=== PATIENT | female | born 1955 | race Caucasian/White ===

== ENCOUNTER → 2016-09-12 | Outpatient (CLI) | payer OTHER ==
[~2016-09-12] MED LIST: ALL180 PO; ATV5 PO; CITA20TA4 PO; OMEP40CA41 PO; SIMV20TA5 PO; SOLI10TA2 PO; SYN50 PO
[2016-09-12 17:46] LABS: ALT/SGPT 34 U/L (12-78); AST/SGOT 22 U/L (15-37); BLOOD UREA NITROGEN 10 mg/dl (7-18); CALCIUM 9.2 mg/dl (8.5-10.1); CARBON DIOXIDE 28 mmol/L (21-32); CHLORIDE 106 mmol/L (98-107); GLUCOSE 103 mg/dl (70-99); POTASSIUM 3.8 mmol/L (3.5-5.1); SODIUM 143 mmol/L (136-145)
[2016-09-12 17:49] LABS: ALB/GLOB RATIO 1.1 (0.9-2); ALKALINE PHOSPHATASE 61 U/L (45-117)
[2016-09-12 18:27] LABS: LYME DISEASE AB IGG NEG (NEG); LYME DISEASE AB IGM EQUIVOCAL (NEG)
[2016-09-15 15:57] LABS: 18KDIGG BAND NONREACTIVE (NONREACTIVE); 23KDIGG BAND NONREACTIVE (NONREACTIVE); 23KDIGM BAND NONREACTIVE (NONREACTIVE); 28KDIGG BAND NONREACTIVE (NONREACTIVE); 30KDIGG BAND NONREACTIVE (NONREACTIVE); 39KDIGG BAND NONREACTIVE (NONREACTIVE); 39KDIGM BAND NONREACTIVE (NONREACTIVE); 41KDIGG BAND NONREACTIVE (NONREACTIVE); 41KDIGM BAND NONREACTIVE (NONREACTIVE); 45KDIGG BAND NONREACTIVE (NONREACTIVE); 58KDIGG BAND NONREACTIVE (NONREACTIVE); 66KDIGG BAND NONREACTIVE (NONREACTIVE); 93KDIGG BAND NONREACTIVE (NONREACTIVE)
== END | disposition home or self-care (01) ==
LOC: C.LABBFT 10:23
PROVIDERS: ATTEND Internal Medicine
DX: M79.1 Myalgia (principal)

== ENCOUNTER → 2016-10-20 | Outpatient (CLI) | payer OTHER ==
[~2016-10-20] VITALS: Ht 154.9 cm; Wt 90.4 kg
[2016-10-20 15:25] VITALS: BP 122/76; PULSE 87; Ht 154.9 cm; Wt 90.4 kg
== END | disposition home or self-care (01) ==
LOC: C.NEUR 13:36
PROVIDERS: ATTEND Internal Medicine Pulmonary Disease
DX: G47.30 Sleep apnea, unspecified (principal)

== ENCOUNTER → 2016-11-23 | Outpatient (CLI) | payer OTHER ==
--- NOTE | 2016-11-23 09:32 | DIAGNOSTIC IMAGING REPORT ---
RIGHT SHOULDER 3 VIEWS HISTORY: Right shoulder pain. quadriceps muscle, fascia and tendon, subsequent [id number] Right COMPARISON: None. FINDINGS: There is no fracture or dislocation. Soft tissues are unremarkable. Distal resorption/resection of the right clavicle. No fractures within the right clavicle. Tiny punctate calcification adjacent to the superior aspect of the glenoid may be related to the proximal long head of the biceps tendon. IMPRESSION: 1. No fracture or dislocation within the right shoulder. 2. Punctate calcification adjacent to the superior aspect of the glenoid may related to the proximal biceps tendon. Electronically signed by: Leonid Garcia M.D. 11/23/2016 9:30 AM Dictated Date/Time: 11/23/2016 9:29 AM
== END | disposition home or self-care (01) ==
LOC: C.RAD1850 09:13
PROVIDERS: ATTEND Internal Medicine Rheumatology
DX: F45.8 Other somatoform disorders (principal); M79.1 Myalgia; E55.9 Vitamin D deficiency, unspecified; S76.101D Unspecified injury of right quadriceps muscle, fascia and tendon, subsequent encounter; X58.XXXD Exposure to other specified factors, subsequent encounter; S76.119A Strain of unspecified quadriceps muscle, fascia and tendon, initial encounter; X58.XXXA Exposure to other specified factors, initial encounter; M25.511 Pain in right shoulder

== ENCOUNTER → 2016-11-29 | Outpatient (CLI) | payer OTHER ==
[2016-11-29 18:19] LABS: BASO % 0.4 %; BASO ABS # 0.05 K/uL (0-0.2); COMPLETE YES; EOS % 3.4 %; HEMATOCRIT 39.8 % (37-47); IG% 0.3 %; LYMPH % 26.4 %; LYMPH ABS # 3.11 K/uL (1.2-3.4); MEAN CELL VOLUME 91.5 fL (80-100); MEAN CORPUSCULAR HEMOGLOBIN 30.6 pg (25-34); MEAN CORPUSCULAR HGB CONC 33.4 g/dl (32-36); MEAN PLATELET VOLUME 10.2 fL (7.4-10.4); MONO % 6.6 %; NEUT % 62.9 %; PLATELET COUNT 360 K/uL (130-400); RED BLOOD COUNT 4.35 M/uL (4.2-5.4); WHITE BLOOD COUNT 11.76 K/uL (4.8-10.8)
[2016-11-29 19:24] LABS: BLOOD UREA NITROGEN 11 mg/dl (7-18); BUN/CREATININE RATIO 8.5 (10-20); CARBON DIOXIDE 25 mmol/L (21-32); CHLORIDE 106 mmol/L (98-107); GLUCOSE 148 mg/dl (70-99); PHOSPHORUS 3.5 mg/dl (2.5-4.9); POTASSIUM 3.7 mmol/L (3.5-5.1); SODIUM 140 mmol/L (136-145)
== END | disposition home or self-care (01) ==
LOC: C.LABBFT 13:39
PROVIDERS: ATTEND Internal Medicine
DX: E55.9 Vitamin D deficiency, unspecified (principal); N28.9 Disorder of kidney and ureter, unspecified

== ENCOUNTER → 2016-12-12 | Outpatient (CLI) | payer OTHER ==
[2016-12-12 12:39] LABS: BASO % 0.5 %; BASO ABS # 0.05 K/uL (0-0.2); COMPLETE YES; EOS % 2.2 %; HEMATOCRIT 41.3 % (37-47); IG% 0.3 %; LYMPH % 20.7 %; LYMPH ABS # 2.02 K/uL (1.2-3.4); MEAN CORPUSCULAR HEMOGLOBIN 30.4 pg (25-34); MEAN CORPUSCULAR HGB CONC 32.7 g/dl (32-36); MEAN PLATELET VOLUME 9.9 fL (7.4-10.4); MONO % 8.2 %; NEUT % 68.1 %; PLATELET COUNT 356 K/uL (130-400); RED BLOOD COUNT 4.44 M/uL (4.2-5.4); WHITE BLOOD COUNT 9.78 K/uL (4.8-10.8)
[2016-12-12 12:50] LABS: URINE APPEARANCE CLEAR (CLEAR); URINE BILIRUBIN NEG (NEG); URINE COLOR YELLOW; URINE NITRITE NEG (NEG); URINE PH 5.5 (4.5-7.5); URINE SPECIFIC GRAVITY 1.005 (1.000-1.030); UROBILINOGEN NEG (NEG)
[2016-12-12 12:55] LABS: MANUAL MICROSCOPIC REQUIRED? YES; REVIEW REQ? NO
[2016-12-12 13:04] LABS: URINE RBC 0-4 /hpf (0-4)
[2016-12-12 13:05] LABS: URINE BACTERIA 1+ (NEG); ZZUR CULT IF INDIC CLEAN CATCH YES
== END | disposition home or self-care (01) ==
LOC: C.LABBFT 09:09
PROVIDERS: ATTEND Physician Assistant Medical
DX: N28.9 Disorder of kidney and ureter, unspecified (principal); R20.0 Anesthesia of skin

== ENCOUNTER → 2016-12-26 | Outpatient (CLI) | payer OTHER ==
--- NOTE | 2016-12-26 10:35 | DIAGNOSTIC IMAGING REPORT ---
RENAL ULTRASOUND HISTORY: Renal insufficiency. Flank pain. N28.9 Renal [id number] COMPARISON: None. FINDINGS: Right kidney: Maximum dimension 11.2 cm. 3 x 3.5 cm septated cyst. No evidence for hydronephrosis. Normal corticomedullary differentiation and cortical thickness. Left kidney: Maximum dimension 10.6 cm. 2 small cysts measuring 9 in 12 mm. Normal corticomedullary differentiation and cortical thickness. Bladder: No bladder wall thickening. The bilateral ureteral jets were identified. IMPRESSION: No evidence for hydronephrosis. Small bilateral renal cysts. Electronically signed by: Adis Lomas M.D. 12/26/2016 10:34 AM Dictated Date/Time: 12/26/2016 10:32 AM
== END | disposition home or self-care (01) ==
LOC: C.ULTR 09:54
PROVIDERS: ATTEND Internal Medicine
DX: N28.9 Disorder of kidney and ureter, unspecified (principal)

== ENCOUNTER → 2016-12-27 | Outpatient (CLI) | payer OTHER ==
[2016-12-27 18:21] LABS: LYME DISEASE AB IGG NEG (NEG); LYME DISEASE AB IGM EQUIVOCAL (NEG)
[2016-12-28 01:09] LABS: RAPID PLASMA REAGIN NONREACTIVE (NONREACT)
[2017-01-02 10:44] LABS: 18KDIGG BAND NONREACTIVE (NONREACTIVE); 23KDIGG BAND NONREACTIVE (NONREACTIVE); 23KDIGM BAND NONREACTIVE (NONREACTIVE); 28KDIGG BAND NONREACTIVE (NONREACTIVE); 30KDIGG BAND NONREACTIVE (NONREACTIVE); 39KDIGG BAND NONREACTIVE (NONREACTIVE); 39KDIGM BAND NONREACTIVE (NONREACTIVE); 41KDIGG BAND NONREACTIVE (NONREACTIVE); 41KDIGM BAND NONREACTIVE (NONREACTIVE); 45KDIGG BAND NONREACTIVE (NONREACTIVE); 58KDIGG BAND NONREACTIVE (NONREACTIVE); 66KDIGG BAND NONREACTIVE (NONREACTIVE); 93KDIGG BAND NONREACTIVE (NONREACTIVE)
== END | disposition home or self-care (01) ==
LOC: C.LABBFT 10:47
PROVIDERS: ATTEND Psychiatry & Neurology Neurology
DX: R20.0 Anesthesia of skin (principal)

== ENCOUNTER → 2016-12-29 | Outpatient (CLI) | payer OTHER ==
--- NOTE | 2016-12-29 15:02 | DIAGNOSTIC IMAGING REPORT ---
BILATERAL LOWER EXTREMITY ARTERIAL DOPPLER ULTRASOUND CLINICAL HISTORY: Cramps of lower extremities. COMPARISON STUDY: No previous studies for comparison. TECHNIQUE: Initially, ankle to brachial indices were obtained. Grayscale and color and duplex Doppler sonography of each lower extremity was performed. FINDINGS: The right ankle to brachial measured 1.08 when using the posterior tibial artery and 0.98 when using the dorsalis pedis. The left ankle brachial index measured 1.1 when using posterior tibial artery and 1.01 when using the dorsalis pedis. There was minimal plaque within each lower extremity. No elevated velocities were identified. There was triphasic and biphasic flow throughout each lower extremity. No vessel occlusion is identified. IMPRESSION: 1. Normal bilateral ankle to brachial indices. 2. Minimal atherosclerotic plaque within each lower extremity without evidence of a hemodynamically significant stenosis. Electronically signed by: Gadiel Montelongo M.D. 12/29/2016 3:00 PM Dictated Date/Time: 12/29/2016 2:57 PM
--- NOTE | 2016-12-29 15:06 | DIAGNOSTIC IMAGING REPORT ---
LUMBAR SPINE 5 VIEWS HISTORY: M54.2 Neck [id number], PT WENT TO ULTRASOUND FIRST COMPARISON: None. FINDINGS: There is no fracture. Grade 1 anterolisthesis of L4 and L5. This is associated with degenerative changes of posterior facets. All remaining disc spaces are generally well preserved. Minimal degenerative changes seen at L5-S1. IMPRESSION: 1. Grade 1 spondylolisthesis L4 and L5 associated with degenerative changes of posterior elements. 2. Mild/moderate degenerative disc change L5-S1. Electronically signed by: Adis Lomas M.D. 12/29/2016 3:04 PM Dictated Date/Time: 12/29/2016 3:03 PM
--- NOTE | 2016-12-29 15:06 | DIAGNOSTIC IMAGING REPORT ---
C-SPINE ROUTINE 4 OR 5 VIEWS CLINICAL HISTORY: Neck pain. No trauma. COMPARISON STUDY: Neck radiograph September 11, 2015. FINDINGS: Mild anterolisthesis of C5 on C6 is unchanged. There is moderate disc space narrowing at C4-C5 and C6-C7. There is moderate multilevel facet arthrosis with multilevel bony neural foraminal narrowing. No fracture or suspicious lesion is present. IMPRESSION: 1. No acute cervical spine fracture. 2. No change in mild anterolisthesis of C5 on C6 since CT of June 15, 2014. 3. Moderate multilevel degenerative disc disease and facet arthrosis. Electronically signed by: Gadiel Montelongo M.D. 12/29/2016 3:05 PM Dictated Date/Time: 12/29/2016 3:03 PM
== END | disposition home or self-care (01) ==
LOC: C.ULTR 12:55
PROVIDERS: ATTEND Psychiatry & Neurology Neurology
DX: R25.2 Cramp and spasm (principal); M54.2 Cervicalgia

== ENCOUNTER → 2017-01-12 | Outpatient (CLI) | payer OTHER | END | disposition home or self-care (01) | LOC: C.PAPS 11:04 | PROVIDERS: ATTEND Obstetrics & Gynecology | DX: Z01.419 Encounter for gynecological examination (general) (routine) without abnormal findings (principal) ==

== ENCOUNTER → 2017-01-12 | Outpatient (CLI) | payer OTHER ==
--- NOTE | 2017-01-12 12:52 | MAMMOGRAPHY REPORT ---
BILATERAL DIGITAL SCREENING MAMMOGRAM TOMOSYNTHESIS WITH CAD: 01/12/2017 CLINICAL HISTORY: Routine screening. Patient has no complaints. TECHNIQUE: Breast tomosynthesis in addition to standard 2D mammography was performed. Current study was also evaluated with a Computer Aided Detection (CAD) system. COMPARISON: Comparison is made to exams dated: 01/10/2016 mammogram, 12/16/2014 mammogram, 12/11/2013 mammogram, 12/03/2012 mammogram, 11/29/2011 mammogram, and 11/15/2010 mammogram - [facility]. BREAST COMPOSITION: There are scattered areas of fibroglandular density in both breasts. FINDINGS: No suspicious masses, calcifications, or areas of architectural distortion are noted in e ither breast. There has been no significant interval change compared to prior exams. IMPRESSION: ACR BI-RADS CATEGORY 1: NEGATIVE There is no mammographic evidence of malignancy. A 1 year screening mammogram is recommended. The p atient will receive written notification of the results. Approximately 10% of breast cancers are not detected with mammography. A negative mammographic repor t should not delay biopsy if a clinically suggestive mass is present. Angelica Marmolejo M.D. ah/:01/12/2017 12:17:49 Retail Property Manager: Maricruz SARKAR(Salomon)(M), [facility] letter sent: Normal 1/2 BI-RADS Code: ACR BI-RADS Category 1: Negative
== END | disposition home or self-care (01) ==
LOC: C.MAMM 10:20
PROVIDERS: ATTEND Obstetrics & Gynecology
DX: Z12.31 Encounter for screening mammogram for malignant neoplasm of breast (principal)

== ENCOUNTER → 2017-03-06 | Outpatient (CLI) | payer OTHER ==
[~2017-03-06] MED LIST changes: +OPTIRAY 320 IV PRN
--- NOTE | 2017-03-06 09:15 | DIAGNOSTIC IMAGING REPORT ---
ABDOMEN COMBO CLINICAL HISTORY: 62 years-old Female presenting with renal cyst. TECHNIQUE: Multidetector CT of the abdomen was performed before and after the administration of intravenous contrast. IV contrast: 119 mL of Optiray 320. COMPARISON: 03/04/2009. CT DOSE: The estimated cumulative dose is 2242.34 mGy.cm. FINDINGS: [employer] topogram: Unremarkable. Lung bases: Minimal dependent changes likely atelectasis. Right lower lobe lung cyst noted. Normal heart size. No pericardial or pleural effusion. Liver: Normal morphology. Density consistent with hepatic steatosis. Hyperenhancing 11 mm lesion in segment 6 (series 5 image 180), which remains hyperenhancing on delayed phase, matching the blood pool and consistent with a hemangioma. No suspicious hepatic lesion. Conventional hepatic arterial anatomy. Superior mesenteric, portal, and hepatic veins patent. Biliary: No intrahepatic or extrahepatic biliary ductal dilatation. Normal gallbladder. Pancreas: Mild parenchymal atrophy. Spleen: Normal. Adrenal glands: Nodular thickening of the adrenal glands bilaterally. Kidneys and ureters: Parenchyma calcification in the left kidney. No nephrolithiasis. Multiple well-defined hypodensities in the kidneys, which maintain water density throughout phases consistent with simple cyst. One of the prominent left renal cyst in the interpolar region has a slightly elevated density on precontrast imaging, likely indicating hemorrhagic or proteinaceous debris. No suspicious enhancing renal mass. Mild pelviectasis. No filling defect within the collecting systems. No hydronephrosis. Normal excretion. Gastrointestinal tract: Normal appendix. No bowel obstruction. Peritoneal cavity: No free fluid or intraperitoneal gas. Vasculature: Mild atherosclerosis of the normal caliber abdominal aorta. Lymph nodes: Few prominent lymph nodes in the portacaval region measuring up to 8 mm in the short axis (series 7 image 132). These may be reactive. Abdominal wall: Small fat-containing umbilical hernia. Musculoskeletal: Degenerative changes of the spine. IMPRESSION: 1. Hepatic steatosis. No suspicious hepatic lesion. 2. Multiple nonenhancing hypodense renal lesions consistent with cysts, many predominantly simple though one in the left kidney may contain minimal proteinaceous or hemorrhagic debris. No suspicious renal lesion. Electronically signed by: Derrek Daniels M.D. 03/06/2017 9:14 AM Dictated Date/Time: 03/06/2017 9:00 AM
== END | disposition home or self-care (01) ==
LOC: C.CTS 08:00
PROVIDERS: ATTEND Physician Assistant Medical
DX: N28.1 Cyst of kidney, acquired (principal); K76.0 Fatty (change of) liver, not elsewhere classified

== ENCOUNTER → 2017-03-22 | Outpatient (CLI) | payer OTHER ==
[~2017-03-22] MED LIST changes: -OPTIRAY 320 IV PRN
[2017-03-22 18:08] LABS: BLOOD UREA NITROGEN 11 mg/dl (7-18); BUN/CREATININE RATIO 7.6 (10-20); CALCIUM 9.3 mg/dl (8.5-10.1); CARBON DIOXIDE 27 mmol/L (21-32); CHLORIDE 104 mmol/L (98-107); GLUCOSE 176 mg/dl (70-99); POTASSIUM 3.5 mmol/L (3.5-5.1); SODIUM 139 mmol/L (136-145)
[2017-03-22 18:19] LABS: PHOSPHORUS 3.6 mg/dl (2.5-4.9)
[2017-03-23 06:34] LABS: ESTIMATED AVERAGE GLUCOSE 137 mg/dl; HA1C FLAG Normal (Normal)
== END | disposition home or self-care (01) ==
LOC: C.LABBFT 09:49
PROVIDERS: ATTEND Internal Medicine
DX: E03.9 Hypothyroidism, unspecified (principal); R73.03 Prediabetes; N28.9 Disorder of kidney and ureter, unspecified

== ENCOUNTER → 2017-07-02 | Outpatient (CLI) | payer OTHER ==
[2017-07-02 12:58] LABS: URINE APPEARANCE CLEAR (CLEAR); URINE BILIRUBIN NEG (NEG); URINE COLOR YELLOW; URINE EPITHELIAL CELL AUTO >30 /lpf (0-5); URINE NITRITE NEG (NEG); URINE PH 5.5 (4.5-7.5); URINE SPECIFIC GRAVITY 1.013 (1.000-1.030); UROBILINOGEN NEG (NEG); ZZUR CULT IF INDIC CLEAN CATCH YES
[2017-07-02 12:59] LABS: ESTIMATED AVERAGE GLUCOSE 131 mg/dl; HA1C FLAG Normal (Normal)
[2017-07-02 13:02] LABS: ALKALINE PHOSPHATASE 64 U/L (45-117); AST/SGOT 26 U/L (15-37); BLOOD UREA NITROGEN 12 mg/dl (7-18); CALCIUM 9.5 mg/dl (8.5-10.1); CARBON DIOXIDE 29 mmol/L (21-32); CHLORIDE 101 mmol/L (98-107); CHOLESTEROL 248 mg/dl (0-200); CREATININE 1.15 mg/dl (0.60-1.20); GLUCOSE 111 mg/dl (70-99); SODIUM 139 mmol/L (136-145); TRIGLYCERIDES 354 mg/dl (0-150); VERY LOW DENSITY LIPOPROT CALC 71 mg/dl
[2017-07-02 13:03] LABS: ALB/GLOB RATIO 1.1 (0.9-2); ALT/SGPT 29 U/L (12-78); CHOLESTEROL/HDL RATIO 7.1; HDL CHOLESTEROL 35 mg/dl; LDL CHOLESTEROL CALCULATED 142 mg/dl
[2017-07-02 13:06] LABS: MANUAL MICROSCOPIC REQUIRED? NO; REVIEW REQ? NO
== END | disposition home or self-care (01) ==
LOC: C.LABBFT 08:22
PROVIDERS: ATTEND Internal Medicine
DX: R31.29 Other microscopic hematuria (principal); R73.03 Prediabetes; E59 Dietary selenium deficiency; E78.5 Hyperlipidemia, unspecified

== ENCOUNTER → 2017-11-02 | Outpatient (CLI) | payer OTHER ==
[~2017-11-02] VITALS: Ht 154.9 cm; Wt 90.9 kg
[2017-11-02 14:46] VITALS: BP 129/85; PULSE 102; Ht 154.9 cm; Wt 90.9 kg
== END | disposition home or self-care (01) ==
LOC: C.NEUR 13:29
PROVIDERS: ATTEND Internal Medicine Pulmonary Disease
DX: G47.33 Obstructive sleep apnea (adult) (pediatric) (principal); J44.9 Chronic obstructive pulmonary disease, unspecified

== ENCOUNTER → 2017-11-20 | Outpatient (CLI) | payer OTHER ==
[2017-11-20 15:27] LABS: ALBUMIN 3.8 gm/dl (3.4-5.0); ALT/SGPT 31 U/L (12-78); BLOOD UREA NITROGEN 13 mg/dl (7-18); CALCIUM 9.2 mg/dl (8.5-10.1); CARBON DIOXIDE 27 mmol/L (21-32); CHOLESTEROL 229 mg/dl (0-200); CREATININE 1.22 mg/dl (0.60-1.20); GLUCOSE 108 mg/dl (70-99); POTASSIUM 3.9 mmol/L (3.5-5.1); SODIUM 138 mmol/L (136-145)
[2017-11-20 15:37] LABS: ALKALINE PHOSPHATASE 69 U/L (45-117); AST/SGOT 21 U/L (15-37); LDL CHOLESTEROL CALCULATED 135 mg/dl; TOTAL PROTEIN 7.1 gm/dl (6.4-8.2)
[2017-11-21 05:29] LABS: HEMOGLOBIN A1C 6.4 % (4.5-5.6)
== END | disposition home or self-care (01) ==
LOC: C.LABBFT 07:06
PROVIDERS: ATTEND Internal Medicine
DX: R20.0 Anesthesia of skin (principal); R73.03 Prediabetes; E03.9 Hypothyroidism, unspecified; E78.5 Hyperlipidemia, unspecified; E55.9 Vitamin D deficiency, unspecified

== ENCOUNTER → 2018-04-15 | Outpatient (CLI) | payer OTHER ==
[2018-04-15 12:28] LABS: BASO % 0.3 %; BASO ABS # 0.04 K/uL (0-0.2); EOS % 3.3 %; EOS ABS # 0.38 K/uL (0-0.5); HEMATOCRIT 41.2 % (37-47); HEMOGLOBIN 13.5 g/dL (12.0-16.0); IG# 0.04 K/uL (0.00-0.02); LYMPH % 21.7 %; LYMPH ABS # 2.49 K/uL (1.2-3.4); MEAN CELL VOLUME 90.7 fL (80-100); MEAN CORPUSCULAR HEMOGLOBIN 29.7 pg (25-34); MEAN CORPUSCULAR HGB CONC 32.8 g/dl (32-36); MEAN PLATELET VOLUME 10.3 fL (7.4-10.4); MONO % 3.3 %; MONO ABS # 0.38 K/uL (0.11-0.59); NEUT % 71.1 %; NEUT ABS # 8.12 K/uL (1.4-6.5); PLATELET COUNT 357 K/uL (130-400); RED CELL DISTRIBUTION WIDTH CV 15.8 % (11.5-14.5); RED CELL DISTRIBUTION WIDTH SD 52.6 fL (36.4-46.3); WHITE BLOOD COUNT 11.45 K/uL (4.8-10.8)
[2018-04-15 12:59] LABS: HEMOGLOBIN A1C 6.4 % (4.5-5.6)
[2018-04-15 13:00] LABS: ALBUMIN 3.7 gm/dl (3.4-5.0); ALKALINE PHOSPHATASE 69 U/L (45-117); ALT/SGPT 28 U/L (12-78); AST/SGOT 20 U/L (15-37); BLOOD UREA NITROGEN 12 mg/dl (7-18); CALCIUM 9.1 mg/dl (8.5-10.1); CARBON DIOXIDE 25 mmol/L (21-32); CHOLESTEROL 221 mg/dl (0-200); CREATININE 1.29 mg/dl (0.60-1.20); GLUCOSE 196 mg/dl (70-99); LDL CHOLESTEROL CALCULATED 123 mg/dl; POTASSIUM 3.6 mmol/L (3.5-5.1); SODIUM 139 mmol/L (136-145); TOTAL PROTEIN 7.1 gm/dl (6.4-8.2)
== END | disposition home or self-care (01) ==
LOC: C.LABBFT 10:52
PROVIDERS: ATTEND Internal Medicine
DX: R73.03 Prediabetes (principal); E78.5 Hyperlipidemia, unspecified; N18.3 Chronic kidney disease, stage 3 (moderate)